=== PATIENT | male | born 1945 | race Two or more races ===

== ENCOUNTER → 2024-03-21 | Outpatient (CLI) | payer MEDICARE, MEDICAID, SELFPAY ==
--- NOTE | 2024-03-21 10:15 | XR_ITS ---
EXAMINATION: PET/CT FUSION SKULL TO THIGH EXAM DATE AND TIME: March 21, 2024 1113 hours INDICATIONS: Diagnosis prostate cancer, staging prior to treatment CTDI:vol (mGy) 5.78 DLP: (mGycm) 505.47 PROCEDURE: 15.47 mCi FDG was administered intravenously To allow for distribution and uptake of radiotracer, the patient was allowed to rest quietly in a shielded room. Imaging was performed on an integrated 16-slice PET/CT scanner, with scanning from the skull base to the mid thigh. Serum blood glucose at the time of the injection was measured 124 mg/dL. CT scanning was performed without oral or intravenous contrast material. FINDINGS: Head and Neck: There is no dagoberto hypermetabolism in the neck. The visualized portions of the brain are normal in appearance on CT. Chest: There is no dagoberto hypermetabolism in the chest. There are no pulmonary nodules. Abdomen and Pelvis: There is no dagoberto hypermetabolism in retroperitoneal or pelvic chains. The spleen is normal in size and FDG avidity. Musculoskeletal: Multiple subcentimeter osteoblastic foci involving almost all thoracic and lumbar vertebral bodies, the largest 8 mm in T12 and the largest 8 mm in L1 as well as 9 mm in the L3 Multiple subcentimeter osteoblastic foci in the iliac bones 24 mm sclerotic focus in the right hip IMPRESSION: Widespread non hypermetabolic osteoblastic metastases
[2024-03-21 12:28] LABS: Basophils % (Auto) 0 % (0-2.5); Eosinophils # (Auto) 0.1 Thou/mm3 (0.0-0.5); Eosinophils % (Auto) 1 % (0-10); Hematocrit 45.1 % (41.0-53.0); Hemoglobin 14.2 g/dL (13.5-16.0); Immature Granulocytes % (Auto) 0 % (0-0); Immature Granulocytes Auto 0.03 Thou/mm3 (0.00-0.00); Lymphocytes # (Auto) 2.5 Thou/mm3 (1.0-4.8); Lymphocytes % (Auto) 26 % (10-50); Mean Corpuscular HGB Conc 31.5 g/dl (31.0-37.0); Mean Corpuscular Hemoglobin 21.4 pg (25.0-35.0); Mean Corpuscular Volume 68 fL (80-100); Monocytes # (Auto) 0.7 Thou/mm3 (0.0-0.8); Monocytes % (Auto) 7 % (0-12); Neutrophils # (Auto) 6.2 Thou/mm3 (1.8-7.7); Neutrophils % (Auto) 65 % (37-80); Nucleated Red Blood Cell % 0 /100 WBC (0); Platelet Count 306 Thou/mm3 (140-440); Red Blood Count 6.65 Miln/mm3 (4.50-5.90); White Blood Count 9.5 Thou/mm3 (3.8-10.6)
[2024-03-21 12:46] LABS: Prostate Specific Antigen 4.27 ng/mL (0-4.00)
[2024-03-21 12:48] LABS: Alanine Aminotransferase 16 U/L (10-49); Albumin, Serum 4.5 gm/dL (3.4-4.8); Albumin/Globulin Ratio 1.7 (1.2-2.2); Alkaline Phosphatase 91 U/L (46-116); Anion Gap 5 (7-16); Aspartate Amino Transferase 24 U/L (0-34); BUN/Creatinine Ratio 23 Ratio (12-20); Blood Urea Nitrogen 18 mg/dL (9-23); Calcium 9.9 mg/dL (8.3-10.6); Calcium (Corrected) 9.9 mg/dL (8.5-10.1); Carbon Dioxide 33.9 mMol/L (20.0-31.0); Chloride 98 mMol/L (98-107); Creatinine (Component) 0.8 mg/dL (0.6-1.3); Globulin 2.6 gm/dL (2.3-3.5); Glucose 104 mg/dL (74-106); Osmolality,Calculated 275 (275-295); Potassium 3.9 mMol/L (3.4-5.1); Sodium 137 mMol/L (136-145); Total Protein 7.1 gm/dL (5.7-8.2); eGFR > 60 See Note
== END | disposition home or self-care (01) ==
LOC: CDIM 09:26 → COPL 11:56 → CDIM 04-19 05:54
PROVIDERS: Referring Provider Nurse Practitioner Family; Visit Provider Nurse Practitioner Family
DX: C79.9 Secondary malignant neoplasm of unspecified site (principal); C61 Malignant neoplasm of prostate; C79.51 Secondary malignant neoplasm of bone
CPT/HCPCS: 36415; 78815; 80053; 84153; 85025; A9552

== ENCOUNTER 2024-03-25 12:00 | Outpatient (RCR) | payer MEDICARE, MEDICAID, SELFPAY | END 2024-04-06 23:59 | disposition home or self-care (01) | LOC: SCTC 12:00 | PROVIDERS: PCP Nurse Practitioner Family; Referring Provider Nurse Practitioner Family; Visit Provider Internal Medicine Hematology & Oncology | DX: Z51.11 Encounter for antineoplastic chemotherapy (principal); C61 Malignant neoplasm of prostate; C79.51 Secondary malignant neoplasm of bone | CPT/HCPCS: 96372; 96402; 99213; J0897; J9217; G0463 ==

== ENCOUNTER → 2024-05-16 | Outpatient (CLI) | payer MEDICARE, MEDICAID, SELFPAY ==
[2024-05-16 08:39] LABS: Basophils % (Auto) 1 % (0-2.5); Eosinophils # (Auto) 0.2 Thou/mm3 (0.0-0.5); Eosinophils % (Auto) 2 % (0-10); Hemoglobin 13.5 g/dL (13.5-16.0); Immature Granulocytes % (Auto) 0 % (0-0); Immature Granulocytes Auto 0.02 Thou/mm3 (0.00-0.00); Lymphocytes # (Auto) 2.1 Thou/mm3 (1.0-4.8); Lymphocytes % (Auto) 27 % (10-50); Mean Corpuscular HGB Conc 32.1 g/dl (31.0-37.0); Mean Corpuscular Hemoglobin 21.6 pg (25.0-35.0); Mean Corpuscular Volume 67 fL (80-100); Monocytes # (Auto) 0.6 Thou/mm3 (0.0-0.8); Monocytes % (Auto) 7 % (0-12); Neutrophils # (Auto) 4.8 Thou/mm3 (1.8-7.7); Neutrophils % (Auto) 63 % (37-80); Nucleated Red Blood Cell % 0 /100 WBC (0); Platelet Count 341 Thou/mm3 (140-440); RDW Standard Deviation 37.1 fL (35.1-43.9); Red Blood Count 6.25 Miln/mm3 (4.50-5.90); White Blood Count 7.6 Thou/mm3 (3.8-10.6)
[2024-05-16 08:50] LABS: Prostate Specific Antigen 7.23 ng/mL (0-4.00)
[2024-05-16 08:55] LABS: Alanine Aminotransferase 13 U/L (10-49); Albumin, Serum 4.4 gm/dL (3.4-4.8); Albumin/Globulin Ratio 1.6 (1.2-2.2); Alkaline Phosphatase 89 U/L (46-116); Anion Gap 7 (7-16); Aspartate Amino Transferase 16 U/L (0-34); BUN/Creatinine Ratio 27 Ratio (12-20); Bilirubin,Total 0.7 mg/dL (0.3-1.2); Blood Urea Nitrogen 16 mg/dL (9-23); Calcium 9.7 mg/dL (8.3-10.6); Calcium (Corrected) 9.7 mg/dL (8.5-10.1); Carbon Dioxide 32.1 mMol/L (20.0-31.0); Chloride 103 mMol/L (98-107); Creatinine (Component) 0.6 mg/dL (0.6-1.3); Globulin 2.7 gm/dL (2.3-3.5); Glucose 118 mg/dL (74-106); Osmolality,Calculated 285 (275-295); Potassium 4.4 mMol/L (3.4-5.1); Sodium 142 mMol/L (136-145); Total Protein 7.1 gm/dL (5.7-8.2); eGFR > 60 See Note
== END | disposition home or self-care (01) ==
LOC: COPL 07:54 → SCTO 07:56
PROVIDERS: PCP Nurse Practitioner Family; Referring Provider Internal Medicine Hematology & Oncology; Visit Provider Internal Medicine Hematology & Oncology
DX: C61 Malignant neoplasm of prostate (principal); C79.51 Secondary malignant neoplasm of bone
CPT/HCPCS: 36415; 80053; 84153; 85025

== ENCOUNTER 2024-05-20 14:30 | Outpatient (RCR) | payer MEDICARE, MEDICAID, SELFPAY ==
--- NOTE | 2024-05-20 16:02 | CTCFLWUP_ITS ---
Patient: LIZZY GARCIA : 1945 Page 2 of 2 FOLLOW UP NOTE DATE OF SERVICE: 05/20/2024 NAME: LIZZY GARCIA ACCOUNT: [id number] : 1945 AGE: 78 INTERVAL HISTORY: Patient was progression on zytiga and was switched to xtandi about 2 months ago. Patient doing well with new medication . his teecth are huirting and need extraction . 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 Patient is a father of 18 children out of which 11 are alive. 06/15/2020: Prostate biopsy was performed due to elevated PSA of 59.12. Pathology showed [place] score 9 prostatic adenocarcinoma in all biopsy samples. 07/16/2020: Bone scan? 07/28/2020: CT scan of the chest without contrast? 07/28/2020: X-rays of the thoracic spine, lumbar spine as well as pelvis? 09/01/2020: Patient is started on Casodex 50 mg p.o. daily. 09/15/2020: Patient received his first dose of Lupron 7.5 mg IM. 09/28/2020: Casodex 50 mg p.o. daily prescription was given to Mr. Garcia. However Mr. Fabricio beard did not fill the prescription. 10/15/2020: Patient received Lupron 7.5 mg IM. 12/22/2020: Patient is started on abiraterone. 01/18/2021: Abiraterone decreased to 250 mg, 1 tablet daily after low-fat breakfast PSA trend: 08/10/2020: PSA 44.34. 10/13/2020: PSA 4.01. 12/21/2020: PSA is 19.44. 01/28/2021: PSA 0.75. 05/10/2021: PSA 0.13 09/06/2021: PSA less than 0.10 10/22/2021: Bone scan showed improved appearance. 01/06/2022: PSA less than 0.10 03/14/2022: PSA less than 0.10. 07/08/2022: PSA less than 0.10. 12/06/2022: PSA 0.12 02/13/2023: PSA 0.16. 06/01/2023: PSA 0.45 10/09/2023: PSA 0.77 11/07/2023: CT chest abdomen pelvis with contrast 11/27/2023: Bone scan 12/05/2023: X-ray left hip-no findings diagnostic for osteoblastic metastatic disease involving the hi p, consider MRI left hip pre and postcontrast 01/02/2024: MRI abdomen with and without contrast-25 mm right lobe liver cyst, no abdominal lymphadeno lionel 01/02/2024: MRI left hip with and without contrast-osseous metastatic disease involving the intertroch anteric and subtrochanteric region left hip as well as anterior right acetabulum 12/04/2023: PSA was 1.21 OTHER MEDICAL HISTORY/CONDITIONS: FAMILY HISTORY: SOCIAL HISTORY: MEDICATIONS: 1. allopurinol - 100 mg 2 tab Daily 2. Bone Density Calcium Plus D - 300-200-37.5 mg-unit-mg 1 tab Daily 3. chlorthalidone - 25 mg 1 tab In the evening 4. Citracal + D Slow Release - 600 mg-12.5 mcg (500 unit) 1 tab one tab po twice a day 5. Flomax - 0.4 mg Daily 6. lisinopril - 20 mg tab 7. metFORMIN - 1,000 mg 1 tab Twice a Day 8. Mitigare - 0.6 mg 2 Capsule As directed 9. Vitamin C - 500 mg 1 tab Daily 10. Xtandi - 40 mg 4 tab Daily Medications Last Reconciled by Aissatou Gayle MA on 05/20/2024 ALLERGIES: PENICILLAMINE REVIEW OF SYSTEMS: A complete 14-point review of systems was performed and is negative except as noted in interval histo ry. PHYSICAL EXAMINATION: VITAL SIGNS: Temperature?99, B/P?135/85, Oxygen?Saturation?98% Weight?153?lbs PAIN: 6 - Severe pain ECOG Performance Status: 1 - Symptomatic; ambulatory; restricted in strenuous activity GENERAL APPEARANCE: Appears well, in no apparent distress, appropriately interactive. HEENT: Normocephalic, no temporal wasting, normal conjunctiva, no scleral icterus, normal hearing, li ps without lesions, neck normal range of motion. CARDIOVASCULAR: Not assessed. PULMONARY: Normal respiratory effort, no respiratory distress or use of accessory muscles, speaking i n full sentences, no tachypnea. EXTREMITIES: No pedal edema or cyanosis. SKIN: Normal skin appearance. NEUROLOGIC: Alert and oriented x4. PSHYCHIATRIC: Appropriate affect, mood normal, behavior normal, intact thought and speech. LABORATORY DATA: I have personally reviewed and interpreted each of the patient?s relevant lab tests, abnormal finding s are below: Date 05/16/24 ??GLUCOSE,RANDOM?(mg/dL) 118?H ??BLOOD?UREA?NITROGEN?(mg/dL) 16 ??CREATININE?(mg/dL) 0.60 ??SODIUM?(mmol/L) 142 ??POTASSIUM?(mmol/L) 4.4 ??CHLORIDE?(mmol/L) 103 ??CrCl?(CandG)?(ml/min) 103.19 ??AST/SGOT?(Unit/L) 16 ??ALT/SGPT?(Unit/L) 13 ??ALKALINE?PHOSPHATASE?(Unit/L) 89 ??BILIRUBIN,?TOTAL?(mg/dL) 0.7 ??PROTEIN?TOTAL?(gm/dl) 7.1 ??ALBUMIN,?SERUM?(gm/dl) 4.4 ??GLOBULIN?(gm/dl) 2.7 ??ALBUMIN/GLOBULIN?RATIO 1.6 ??CALCIUM,?SERUM?(mg/dL) 9.7 ??CALCIUM?SERUM?(CORRECTED)?(mg/dL) 9.7 ASSESSMENT/PLAN: Metastatic prostate cancer Progressed on zytiga Was changed to xtandi , taking for last 45-50 days Psa is more than 7 Will wait for another motnh to see sheri . will start on chemotherapy with docetexol if no downward trend . ORDERS: Cbc pet scan , cmp psa RETURN TO CLINIC: 6 weeks BILLING AND COMPLIANCE: I reviewed external records from providers outside my specialty as summarized above. I spent a total of 50 minutes on this patient?s care on the day of their visit excluding time spent related to any bi lled procedures. This time includes time spent with the patient as well as time spent documenting in the medical record, reviewing patients records and tests, obtaining history, placing orders, communi cating with other healthcare professionals, counseling the patient, family or caregiver, and/or care coordination for the diagnoses above. Electronically Signed by: Michael Michael MD T: 4:00 PM CC: Rosaura,? PCP: Nando([facility])[place] Referring: Nando([facility])[place] This document was completed utilizing speech recognition software. Grammatical errors, random word in sertions, pronoun errors, and incomplete sentences are an occasional consequence of this system due t o software limitations, ambient noise, and hardware issues. Any formal questions or concerns about th e content, text or information contained within the body of this dictation should be directly address ed to the provider for clarification.
== END 2024-06-07 23:59 | disposition home or self-care (01) ==
LOC: SCTC 14:30
PROVIDERS: PCP Nurse Practitioner Family; Referring Provider Nurse Practitioner Family; Visit Provider Internal Medicine Hematology & Oncology
DX: C61 Malignant neoplasm of prostate (principal); C79.51 Secondary malignant neoplasm of bone
CPT/HCPCS: 99213; G0463

== ENCOUNTER → 2024-06-14 | Outpatient (BNVA) | payer MEDICARE, MEDICAID, SELFPAY | END | disposition home or self-care (01) | PROVIDERS: PCP Nurse Practitioner Family; Referring Provider Nurse Practitioner Family; Visit Provider Urology | DX: N40.1 Benign prostatic hyperplasia with lower urinary tract symptoms (principal); N13.8 Other obstructive and reflux uropathy; C61 Malignant neoplasm of prostate; C79.51 Secondary malignant neoplasm of bone; E11.9 Type 2 diabetes mellitus without complications; I10 Essential (primary) hypertension | CPT/HCPCS: 81003; 99212; G0463 ==

== ENCOUNTER → 2024-06-25 | Outpatient (CLI) | payer MEDICARE, MEDICAID, SELFPAY ==
--- NOTE | 2024-06-25 10:05 | XR_ITS ---
Examination: PA lateral chest 2 views TECHNIQUE: Upright PA lateral chest 2 views Exam date and time: June 25, 2024 1058 hours INDICATIONS: Coughing wheezing beginning one month ago, diagnosis prostate cancer FINDINGS: Mild hyperexpansion Mild prominence left ventricle No lobar pneumonia or pulmonary edema Significant thoracic spondylosis, the thoracic vertebral bodies in their mid portions do exhibit sclerosis IMPRESSION: Mild hyperexpansion No pneumonia or pulmonary edema Suspicious for osteoblastic disease involving thoracic vertebral bodies
[2024-06-25 12:03] LABS: Basophils % (Auto) 1 % (0-2.5); Eosinophils % (Auto) 0 % (0-10); Hematocrit 42.6 % (41.0-53.0); Hemoglobin 13.5 g/dL (13.5-16.0); Immature Granulocytes % (Auto) 0 % (0-0); Immature Granulocytes Auto 0.03 Thou/mm3 (0.00-0.00); Lymphocytes # (Auto) 1.9 Thou/mm3 (1.0-4.8); Lymphocytes % (Auto) 22 % (10-50); Mean Corpuscular HGB Conc 31.7 g/dl (31.0-37.0); Mean Corpuscular Hemoglobin 21.3 pg (25.0-35.0); Mean Corpuscular Volume 67 fL (80-100); Monocytes # (Auto) 0.6 Thou/mm3 (0.0-0.8); Monocytes % (Auto) 7 % (0-12); Neutrophils # (Auto) 6.1 Thou/mm3 (1.8-7.7); Neutrophils % (Auto) 70 % (37-80); Nucleated Red Blood Cell % 0 /100 WBC (0); Platelet Count 478 Thou/mm3 (140-440); Red Blood Count 6.34 Miln/mm3 (4.50-5.90); White Blood Count 8.7 Thou/mm3 (3.8-10.6)
[2024-06-25 12:25] LABS: Alanine Aminotransferase 10 U/L (10-49); Albumin, Serum 4.3 gm/dL (3.4-4.8); Albumin/Globulin Ratio 1.4 (1.2-2.2); Alkaline Phosphatase 123 U/L (46-116); Anion Gap 10 (7-16); Aspartate Amino Transferase 17 U/L (0-34); BUN/Creatinine Ratio 20 Ratio (12-20); Bilirubin,Total 0.5 mg/dL (0.3-1.2); Blood Urea Nitrogen 16 mg/dL (9-23); Calcium 9.9 mg/dL (8.3-10.6); Calcium (Corrected) 9.9 mg/dL (8.5-10.1); Carbon Dioxide 30.9 mMol/L (20.0-31.0); Chloride 98 mMol/L (98-107); Creatinine (Component) 0.8 mg/dL (0.6-1.3); Glucose 121 mg/dL (74-106); Osmolality,Calculated 279 (275-295); Potassium 5.3 mMol/L (3.4-5.1); Sodium 139 mMol/L (136-145); Total Protein 7.3 gm/dL (5.7-8.2); eGFR > 60 See Note
== END | disposition home or self-care (01) ==
LOC: CDIM 10:09 → SCTO 11:11
PROVIDERS: PCP Nurse Practitioner Family; Referring Provider Nurse Practitioner Family; Visit Provider Radiology Diagnostic Radiology
DX: J98.4 Other disorders of lung (principal); C61 Malignant neoplasm of prostate; C79.51 Secondary malignant neoplasm of bone
CPT/HCPCS: 36415; 71046; 80053; 85025

== ENCOUNTER 2024-06-27 13:40 | Outpatient (RCR) | payer MEDICARE, MEDICAID, SELFPAY | END 2024-07-05 23:59 | disposition home or self-care (01) | LOC: SCTC 13:40 | PROVIDERS: PCP Nurse Practitioner Family; Referring Provider Nurse Practitioner Family; Visit Provider Radiology Therapeutic Radiology | DX: Z51.11 Encounter for antineoplastic chemotherapy (principal); C61 Malignant neoplasm of prostate; C79.51 Secondary malignant neoplasm of bone; Z79.818 Long term (current) use of other agents affecting estrogen receptors and estrogen levels | CPT/HCPCS: 96402; J9217 ==

== ENCOUNTER → 2024-07-11 | Outpatient (CLI) | payer MEDICARE, MEDICAID, SELFPAY ==
--- NOTE | 2024-07-11 14:40 | XR_ITS ---
EXAMINATION: PET/CT FUSION SKULL TO THIGH EXAM DATE AND TIME: July 11, 2024 1539 hours Comparison PET/CT scan March 21, 2024, MR abdomen January 02, 2024, MRI left hip January 02, 2024, nuclear medicine bone scan November 27, 2023, CT chest abdomen pelvis November 07, 2023 CTDI:vol (mGy) 9.92 DLP: (mGycm) 822 PROCEDURE: 16.5 mCi FDG was administered intravenously To allow for distribution and uptake of radiotracer, the patient was allowed to rest quietly in a shielded room. Imaging was performed on an integrated 16-slice PET/CT scanner, with scanning from the skull base to the mid thigh. Serum blood glucose at the time of the injection was measured 114 mg/dL. CT scanning was performed without oral or intravenous contrast material. FINDINGS: Head and Neck: There is no dagoberto hypermetabolism in the neck. The visualized portions of the brain are normal in appearance on CT. Chest: There is no dagoberto hypermetabolism in the chest. There are no pulmonary nodules. Abdomen and Pelvis: There is no dagoberto hypermetabolism in retroperitoneal or pelvic chains. The spleen is normal in size and FDG avidity. Musculoskeletal: Stable widespread osteoblastic metastatic disease IMPRESSION: Stable widespread osteoblastic metastatic disease compared to PET CT scan March 21, 2024 No interval metastatic disease in the chest abdomen or pelvis
== END | disposition home or self-care (01) ==
PROVIDERS: Referring Provider Internal Medicine Hematology & Oncology; Visit Provider Internal Medicine Hematology & Oncology
DX: C79.9 Secondary malignant neoplasm of unspecified site (principal); C61 Malignant neoplasm of prostate; C79.51 Secondary malignant neoplasm of bone
CPT/HCPCS: 78816; A9552

== ENCOUNTER 2024-07-23 12:59 | Outpatient (RCR) | payer MEDICARE, MEDICAID, SELFPAY ==
--- NOTE | 2024-07-23 14:17 | CTCFLWUP_ITS ---
Patient: LIZZY GARCIA : 1945 Page 2 of 7 FOLLOW UP NOTE DATE OF SERVICE: 07/23/2024 NAME: LIZZY GARCIA ACCOUNT: [id number] : 1945 AGE: 78 INTERVAL HISTORY: Patient was switched to Xtandi about 2 months ago. Patient says he has many family issues and he is taking his medication but he take it sporadically. He is planning a trip to [place] and want to come back to the clinic after his trip. ONCOLOGY HISTORY:?[facility] Hx? 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 Patient is a father of 18 children out of which 11 are alive. 06/15/2020: Prostate biopsy was performed due to elevated PSA of 59.12. Pathology showed [place] score 9 prostatic adenocarcinoma in all biopsy samples. 07/16/2020: Bone scan? 07/28/2020: CT scan of the chest without contrast? 07/28/2020: X-rays of the thoracic spine, lumbar spine as well as pelvis? 09/01/2020: Patient is started on Casodex 50 mg p.o. daily. 09/15/2020: Patient received his first dose of Lupron 7.5 mg IM. 09/28/2020: Casodex 50 mg p.o. daily prescription was given to Mr. Garcia. However Mr. Garcia did not fill the prescription. 10/15/2020: Patient received Lupron 7.5 mg IM. 12/22/2020: Patient is started on abiraterone. 01/18/2021: Abiraterone decreased to 250 mg, 1 tablet daily after low-fat breakfast PSA trend: 08/10/2020: PSA 44.34. 10/13/2020: PSA 4.01. 12/21/2020: PSA is 19.44. 01/28/2021: PSA 0.75. 05/10/2021: PSA 0.13 09/06/2021: PSA less than 0.10 10/22/2021: Bone scan showed improved appearance. 01/06/2022: PSA less than 0.10 03/14/2022: PSA less than 0.10. 07/08/2022: PSA less than 0.10. 12/06/2022: PSA 0.12 02/13/2023: PSA 0.16. 06/01/2023: PSA 0.45 10/09/2023: PSA 0.77 11/07/2023: CT chest abdomen pelvis with contrast 11/27/2023: Bone scan 12/05/2023: X-ray left hip-no findings diagnostic for osteoblastic metastatic disease involving the hip, consider MRI left hip pre and postcontrast 01/02/2024: MRI abdomen with and without contrast-25 mm right lobe liver cyst, no abdominal lymphadenopathy 01/02/2024: MRI left hip with and without contrast-osseous metastatic disease involving the intertrochanteric and subtrochanteric region left hip as well as anterior right acetabulum 12/04/2023: PSA was 1.21 PSA on 05/16/2024 is 7.23 PSA on 03/21/2024 4.27 OTHER MEDICAL HISTORY/CONDITIONS: FAMILY HISTORY: ?Clone Family Hx? SOCIAL HISTORY: MEDICATIONS: 1. allopurinol - 100 mg 2 tab Daily 2. chlorthalidone - 25 mg 1 tab In the evening 3. Citracal + D Slow Release - 600 mg-12.5 mcg (500 unit) 1 tab one tab po twice a day 4. Flomax - 0.4 mg Daily 5. lisinopril - 20 mg tab 6. metFORMIN - 1,000 mg 1 tab Twice a Day 7. Mitigare - 0.6 mg 2 Capsule As directed 8. Vitamin C - 500 mg 1 tab Daily 9. Xtandi - 40 mg 4 tab Daily?Pal[place]ra Meds? Medications Last Reconciled by Aissatou Gayle MA on 07/23/2024 ALLERGIES: PENICILLAMINE REVIEW OF SYSTEMS: A complete 14-point review of systems was performed and is negative except as noted in interval history. PHYSICAL EXAMINATION:?[facility] PE? VITAL SIGNS: Temperature?99.4, B/P?127/81, Oxygen?Saturation?97% Weight?143?lbs (Change?since?06/27/24:?-6.8?lbs) PAIN: 4 - Moderate pain ECOG Performance Status: 0 - Asymptomatic and fully active GENERAL APPEARANCE: Appears well, in no apparent distress, appropriately interactive. HEENT: Normocephalic, no temporal wasting, normal conjunctiva, no scleral icterus, normal hearing, lips without lesions, neck normal range of motion. CARDIOVASCULAR: Not assessed. PULMONARY: Normal respiratory effort, no respiratory distress or use of accessory muscles, speaking in full sentences, no tachypnea. EXTREMITIES: No pedal edema or cyanosis. SKIN: Normal skin appearance. NEUROLOGIC: Alert and oriented x4. PSHYCHIATRIC: Appropriate affect, mood normal, behavior normal, intact thought and speech. LABORATORY DATA: I have personally reviewed and interpreted each of the patient?s relevant lab tests, abnormal findings are below: Date 05/16/24 06/25/24 ??WHITE?BLOOD?COUNT?(Thou/mm3) 7.6 8.7 ??RED?BLOOD?COUNT?(Miln/mm3) 6.25?H 6.34?H ??HEMOGLOBIN?(gm/dl) 13.5 13.5 ??HEMATOCRIT?(%) 42.0 42.6 ??PLATELET?COUNT?(Thou/mm3) 341 478?H ??NEUTROPHILS?%,?AUTO?(%) 63 70 ??LYMPH?%,?AUTO?(%) 27 22 ??NEUTROPHILS,?AUTO?(Thou/mm3) 4.8 6.1 ??GLUCOSE,RANDOM?(mg/dL) 118?H 121?H ??BLOOD?UREA?NITROGEN?(mg/dL) 16 16 ??CREATININE?(mg/dL) 0.60 0.80 ??SODIUM?(mmol/L) 142 139 ??POTASSIUM?(mmol/L) 4.4 5.3?H ??CHLORIDE?(mmol/L) 103 98 ??CrCl?(CandG)?(ml/min) 103.19 75.91 ??AST/SGOT?(Unit/L) 16 17 ??ALT/SGPT?(Unit/L) 13 10 ??ALKALINE?PHOSPHATASE?(Unit/L) 89 123?H ??BILIRUBIN,?TOTAL?(mg/dL) 0.7 0.5 ??PROTEIN?TOTAL?(gm/dl) 7.1 7.3 ??ALBUMIN,?SERUM?(gm/dl) 4.4 4.3 ??GLOBULIN?(gm/dl) 2.7 3.0 ??ALBUMIN/GLOBULIN?RATIO 1.6 1.4 ??CALCIUM,?SERUM?(mg/dL) 9.7 9.9 ??CALCIUM?SERUM?(CORRECTED)?(mg/dL) 9.7 9.9 ASSESSMENT/PLAN:?Oanh Michael Assessment/Plan? Metastatic prostate cancer Progressed on zytiga Was changed to xtandi , very noncompliant Last Psa is more than 7 Compliance reiterated PET scan do not show any progression Advised to take medicine Will change Lupron to every 3 months Patient can come back after his trip from [place] ORDERS: Order # Description [id number] Follow Up 2 Months + PSA [id number] Comprehensive Metabolic Panel - 12 + CBC with Auto Diff RETURN TO CLINIC: I will see him back in the clinic in 2 months. I will see him back in the clinic in 2 months. BILLING AND COMPLIANCE: I reviewed external records from providers outside my specialty as summarized above. I spent a total of 50 minutes on this patient?s care on the day of their visit excluding time spent related to any billed procedures. This time includes time spent with the patient as well as time spent documenting in the medical record, reviewing patients records and tests, obtaining history, placing orders, communicating with other healthcare professionals, counseling the patient, family or caregiver, and/or care coordination for the diagnoses above. Electronically Signed by: Michael Michael MD T: 2:15 PM CC: Kathrine?Thomas,? PCP: Michael Michael Referring: Michael Michael This document was completed utilizing speech recognition software. Grammatical errors, random word insertions, pronoun errors, and incomplete sentences are an occasional consequence of this system due to software limitations, ambient noise, and hardware issues. Any formal questions or concerns about the content, text or information contained within the body of this dictation should be directly addressed to the provider for clarification.
== END 2024-08-05 23:59 | disposition home or self-care (01) ==
LOC: SCTC 12:59
PROVIDERS: PCP Nurse Practitioner Family; Referring Provider Internal Medicine Hematology & Oncology; Visit Provider Internal Medicine Hematology & Oncology
DX: C61 Malignant neoplasm of prostate (principal); C79.51 Secondary malignant neoplasm of bone; Z91.148 Patient's other noncompliance with medication regimen for other reason; Z79.818 Long term (current) use of other agents affecting estrogen receptors and estrogen levels
CPT/HCPCS: 99213; G0463

== ENCOUNTER 2024-09-22 15:47 | Emergency (ER) | payer MEDICARE, MEDICAID, SELFPAY ==
--- NOTE | 2024-09-22 17:01 | PD.EDNECK ---
ED Neck Injury Pain RME/HPI General Arrival date/time: 09/22/24 15:47 RME / HPI RME / HPI Narrative: 78 year old male with history of prostate cancer with bone mets, undergoing chemotherapy presents to the ED for evaluation of left sided neck pain beginning 3 days ago. Described as aching in sensation, rating as moderate-severe, that is located most to the left side of neck with radiation down to his left shoulder/upper back. Pain aggravated with movements of his neck. States he has taken Diclofenac, last dose at 13:45, without improvement. Denies any injuries. Patient mentioned he had a bone scan performed 1 month ago and is pending results. Patient denies having experienced neck pain since cancer diagnosis. Related Data Home Medications ?Medication ?Instructions ?Recorded ?Confirmed allopurinol 100 mg tablet 100 mg PO QDAY 06/09/20 06/14/24 tamsulosin 0.4 mg capsule 0.4 mg PO QHS 06/09/20 06/14/24 ascorbic acid (vitamin C) 500 mg 500 mg PO QDAY 06/16/23 06/14/24 capsule lisinopril 20 mg tablet 20 mg PO QDAY 12/15/23 06/14/24 metformin 1,000 mg tablet 1,000 mg PO BID 12/15/23 06/14/24 chlorothiazide 250 mg tablet mg PO 06/14/24 06/14/24 enzalutamide 40 mg tablet (Xtandi) 160 mg PO QDAY 06/14/24 06/14/24 Previous Rx's ?Medication ?Instructions ?Recorded diazepam 10 mg tablet 10 mg PO BID muscle spasm 3 days 09/22/24 #6 tabs hydrocodone 5 mg-acetaminophen 325 1 tab PO Q8H PRN pain #14 tabs 09/22/24 mg tablet Allergies Allergy/AdvReac Type Severity Reaction Status Date / Time Penicillins Allergy hives Verified 06/14/24 09:32 Review of Systems Review of Systems Narrative Review of Systems: Gen: No fever, no chills, no weight loss EYES: No discharge, no visual changes, no pain HEENT: No ear pain, no congestion, no sore throat PULM: no shortness of breath, no cough, no congestion CV: No chest pain, no dyspnea on exertion, no palpitations, no chest tightness GI: No nausea, no vomiting, no diarrhea, no pain, no constipation : No frequency, no urgency,? no dysuria Musc/skel: +neck pain, +back pain Skin: No rash, no ecchymosis, no lesions Neuro: No weakness, no headache Past Medical History Past Medical History CARDIAC: Negative Congestive Heart Failure RESPIRATORY: Negative Chronic Obstructive Pulmonary Disease (COPD) GENITOURINARY: Positive Prostate Cancer (with bone mets); Negative Renal Disease MUSCULOSKELETAL: Positive Bone Cancer ENDOCRINE: Negative Diabetes Mellitus Type 1 or Diabetes Mellitus Type 2 OTHER HISTORY: Positive Cancer and Prostate Cancer (with bone mets) Social History SMOKING STATUS: Never smoker ED Exam Narrative Physical exam: GENERAL APPEARANCE: AxOx4, no obvious distress, nontoxic appearing HEENT: NC, AT. MMM. EOMI, clear conjunctiva, oropharynx clear. NECK: LROM particularly while looking to the left and upward, reproducible pain to the left cervical region that moves down left trapezius, no lymphadenopathy. HEART: Normal rate and regular rhythm, normal S1/S1, no m/r/g LUNGS: CTAB, moving air well. No crackles or wheezes are heard. ABDOMEN: Soft, nontender, nondistended with good bowel sounds heard. BACK: No midline C/T/L spine pain or deformity, No CVAT, no obvious deformity. EXTREMITIES: Without cyanosis, clubbing or edema. MUSCULOSKELETAL: No chest tenderness NEUROLOGICAL: Grossly nonfocal. Alert and oriented, moving all 4 extremities. CN not formally tested but appear grossly intact. Skin: Warm and dry without any rash. Course Quality Measures none Orders Category Date Time Status Diazepam [Valium] Med 09/22/24 17:08 Discontinued 5 mg PO X1 ONE HYDROcodone*/APAP 5/325 [[place] 5/325] Med 09/22/24 17:08 Discontinued 1 tab PO X1 ONE Ketorolac Inj [Toradol Inj] Med 09/22/24 17:08 Discontinued 30 mg IM X1 ONE Vital Signs Vital signs: Vital Signs Temperature 98.2 F 09/22/24 18:16 Pulse Rate 62 09/22/24 18:16 Respiratory Rate 17 09/22/24 18:16 Blood Pressure 149/81 H 09/22/24 18:16 Pulse Oximetry (%) 97 09/22/24 18:16 Oxygen Delivery Method Room Air 09/22/24 18:16 Neck Pain MDM Narrative MDM Narrative:: Mr. Galindo is a very pleasant gentleman, michele, who is aware that he has widespread metastatic prostate cancer to all his bones . In reviewing his previous staging diagnostics, he appears to have metastases to the thoracic and the lumbar spine. Today he is complaining of cervical pain, lower at the level of C4-C6 and radiating to the left shoulder. On exam there is also associated left trapezius spasm and tenderness. He does not have symptoms consistent with radicular pain or deficits in this distribution or other cervical distributions as well. We discussed the possibility of also having metastatic disease to the cervical spine. He states that he understand this is part of the disease, however without significant neurologic deficit through shared decision making we agreed that today we will hold off on imaging such as cervical spine x-ray or cervical spine CT. He has agreed to symptomatic management with muscle relaxers and narcotic pain medicines as he is already maxed out on his diclofenac. He will follow-up with his oncologist to see if further imaging or staging will be required for his cervical spine. I have given him strict return precautions particular neurologic deficits to return to the emergency department for the meantime. I, Melida Peterson, am scribing for and in the presence of Dr. Woodruff. Patient data External records reviewed:: [facility] previous records (I reviewed PET scan performed 07/11/2024 and oncology follow up note on 07/23/2024) Clinical information provided by:: patient Social determinants that could affect healthcare access:: none Patient has the following chronic illnesses:: prostate cancer with bone mets, undergoing chemotherapy How is presenting disease/condition affected by chronic disease/condition?: exacerbated by Evaluation data The following diagnostics were reviewed and interpreted by me:: other (specify) (No diagnostics ordered ) Lab and/or radiology exams considered but not ordered:: None Interpretation Summary: As noted above Medications / Prescriptions Medications or Prescriptions considered but not ordered:: None Medication administrations:: Medication Administration History Discontinued Medications Hydrocodone Bitart/Acetaminophen (Hydrocodone/Apap 5/325 Tablet) 1 tab PO X1 ONE Stop: 09/22/24 17:09 Last Admin: 09/22/24 18:00 Dose: 1 tab Documented By: EF Diazepam (Diazepam 5 Mg Tablet) 5 mg PO X1 ONE Stop: 09/22/24 17:09 Last Admin: 09/22/24 18:00 Dose: 5 mg Documented By: EF Ketorolac Tromethamine (Ketorolac Inj 60 Mg/2 Ml Vial) 30 mg IM X1 ONE Stop: 09/22/24 17:09 Last Admin: 09/22/24 18:00 Dose: 30 mg Documented By: HALINA See above Consultations Consultation(s) initiated? (list below): No Diagnosis Neck Differential Diagnosis: disc disorder of cervical region, cervical radiculopathy, torticollis, strain of neck muscle and other (cancer, chronic pain, ) Most likely diagnosis given after review of the tests above:: Cervical strain History of metastatic neoplastic disease Admission Indicated Admission indicated?: not indicated Explain why admission is indicated or not indicated:: Does not meet admission criteria Admission Request Was there a request for admission?: No Disposition Plan Disposition Plan: Discharge Discharge Attestation Discharge Attestation: The patient and all family members were given an opportunity to ask questions and understood the discharge instructions. Discharge instructions specifically effects, indications for sooner follow up or return to the emergency department, and the expected course of current diagnosis. Patient condition: Stable Discharge Plan Plan Patient Disposition: HOME (Self Care) Prescriptions/Referrals Prescriptions/Med Rec: New diazepam 10 mg tablet 10 mg PO BID 3 Days Qty: 6 0RF hydrocodone-acetaminophen 5-325 mg tablet 1 tab PO Q8H MDD 3 tabs/day PRN (Reason: pain) Qty: 14 0RF No Action allopurinol 100 mg tablet 100 mg PO QDAY tamsulosin 0.4 mg capsule 0.4 mg PO QHS ascorbic acid (vitamin C) 500 mg capsule 500 mg PO QDAY lisinopril 20 mg tablet 20 mg PO QDAY metformin 1,000 mg tablet 1,000 mg PO BID chlorothiazide 250 mg tablet PO Xtandi 40 mg tablet 160 mg PO QDAY Problem List Clinical Impression: Cervical strain, History of metastatic neoplastic disease Patient/Caregiver Discharge Instructions Education Materials: ED Neck Sprain or Strain Additional Instructions: Follow-up with your oncologist in 1 week for recheck. Print Language: Yoruba Stand Alone Forms: [facility] Award Info., Patient Portal Info Letter
[2024-09-22] MEDS: DIAZEPAM 5 MG TABLET PO (18:00)
[2024-09-22] MEDS: KETOROLAC INJ 60 MG/2 ML VIAL 30 MG IM (18:00)
[2024-09-22] MEDS: HYDROcodone/APAP 5/325 TABLET 1 TAB PO (18:00)
[2024-09-22 18:16] VITALS: BP 149/81; PULSE 62; RESP 17; TEMP 36.8; O2SAT 97
== END 2024-09-22 18:18 | disposition home or self-care (01) ==
LOC: SERX 18:51
PROVIDERS: Emergency Provider Emergency Medicine
DX: S16.1XXA Strain of muscle, fascia and tendon at neck level, initial encounter (principal); X58.XXXA Exposure to other specified factors, initial encounter; C61 Malignant neoplasm of prostate; C79.51 Secondary malignant neoplasm of bone
CPT/HCPCS: 96372; 99283; J1885; A9270

== ENCOUNTER → 2024-09-23 | Outpatient (CLI) | payer MEDICARE, MEDICAID, SELFPAY ==
[2024-09-23 10:46] LABS: Basophils % (Auto) 0 % (0-2.5); Eosinophils # (Auto) 0.1 Thou/mm3 (0.0-0.5); Eosinophils % (Auto) 1 % (0-10); Hematocrit 41.5 % (41.0-53.0); Hemoglobin 13.4 g/dL (13.5-16.0); Immature Granulocytes % (Auto) 0 % (0-0); Immature Granulocytes Auto 0.03 Thou/mm3 (0.00-0.00); Lymphocytes # (Auto) 1.8 Thou/mm3 (1.0-4.8); Lymphocytes % (Auto) 25 % (10-50); Mean Corpuscular HGB Conc 32.3 g/dl (31.0-37.0); Mean Corpuscular Hemoglobin 22.3 pg (25.0-35.0); Mean Corpuscular Volume 69 fL (80-100); Monocytes # (Auto) 0.6 Thou/mm3 (0.0-0.8); Monocytes % (Auto) 8 % (0-12); Neutrophils # (Auto) 4.7 Thou/mm3 (1.8-7.7); Neutrophils % (Auto) 66 % (37-80); Nucleated Red Blood Cell % 0 /100 WBC (0); Platelet Count 270 Thou/mm3 (140-440); White Blood Count 7.1 Thou/mm3 (3.8-10.6)
[2024-09-23 11:14] LABS: Alanine Aminotransferase < 7 U/L (10-49); Albumin, Serum 3.9 gm/dL (3.4-4.8); Albumin/Globulin Ratio 1.6 (1.2-2.2); Alkaline Phosphatase 146 U/L (46-116); Anion Gap 9 (7-16); Aspartate Amino Transferase 14 U/L (0-34); BUN/Creatinine Ratio 33 Ratio (12-20); Bilirubin,Total 0.9 mg/dL (0.3-1.2); Blood Urea Nitrogen 23 mg/dL (9-23); Calcium 9.1 mg/dL (8.3-10.6); Calcium (Corrected) 9.2 mg/dL (8.5-10.1); Carbon Dioxide 28.5 mMol/L (20.0-31.0); Chloride 104 mMol/L (98-107); Creatinine (Component) 0.7 mg/dL (0.6-1.3); Globulin 2.4 gm/dL (2.3-3.5); Glucose 108 mg/dL (74-106); Osmolality,Calculated 285 (275-295); Potassium 4.4 mMol/L (3.4-5.1); Sodium 141 mMol/L (136-145); Total Protein 6.3 gm/dL (5.7-8.2); eGFR > 60 See Note
[2024-09-23 11:29] LABS: Prostate Specific Antigen 43.83 ng/mL (0-4.00)
== END | disposition home or self-care (01) ==
LOC: SCTO 09:12
PROVIDERS: PCP Nurse Practitioner Family; Referring Provider Psychiatry & Neurology Neurology; Visit Provider Psychiatry & Neurology Neurology
DX: C61 Malignant neoplasm of prostate (principal); C79.51 Secondary malignant neoplasm of bone
CPT/HCPCS: 36415; 80053; 84153; 85025

== ENCOUNTER 2024-09-26 12:57 | Outpatient (RCR) | payer MEDICARE, MEDICAID, SELFPAY ==
--- NOTE | 2024-10-02 00:20 | CTCFLWUP_ITS ---
Patient: LIZZY GARCIA : 1945 Page 6 of 8 FOLLOW UP NOTE DATE OF SERVICE: 09/25/2024 NAME: LIZZY GARCIA ACCOUNT: [id number] : 1945 AGE: 78 INTERVAL HISTORY: Subjective: Chief Complaint Worsening prostate cancer, non-compliance with medication History of Present Illness Mr. Chavis is a male patient with metastatic prostate cancer presenting for follow-up. His prostate-specific antigen (PSA) cancer marker has significantly increased to 40, indicating worsening of his condition. The patient has been non-compliant with his prescribed medication, Xtandi. He has also missed his scheduled injection in August, which was due on September 03. The last injection he received was in June, making him approximately one month late for his treatment. This non-adherence to his medication regimen has resulted in an uptrend of his PSA levels. Despite the worsening PSA levels, Mr. Chavis's PET scan in July was reported as stable. However, due to his non-compliance with oral medication and missed injections, a change in treatment plan is being considered. The patient's liver enzymes are also noted to be increasing, further complicating his clinical picture. Medications and Supplements - Xtandi - Patient has been non-compliant - Leuprolide 22.5 mg injection - Given every 3 months - Last dose in June - Missed August dose Objective: Laboratory, Imaging, and Diagnostic Test Results - PSA: 40 (uptrending) - Previous results: - PSA: Unspecified lower value (date not mentioned) - PET scan (July 2024): Stable ONCOLOGY HISTORY:?[facility] Hx? 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 DATE OF DIAGNOSIS: 06/15/2020 STAGE/TNM: Stage 4 metastatic cancer TREATMENT HISTORY: Care?Plan Start?Date Cycle Day Intent Lupron?22.5?mg?q?3?mon 12/22/2020 1 90 Palliative Xgeva?120?mg?q?3?months 12/22/2020 1 90 Palliative Lupron?7.5?mg 02/02/2021 1 30 Palliative xgeva?monthly 02/02/2021 1 30 Palliative Xgeva?120?mg?q?3?months 05/19/2022 1 90 Palliative Lupron?22.5?mg?q?3?mon 08/24/2026 1 90 Maintenance DOCEtaxel?75?mg/m*2?and?prednisone?5?mg?bid 09/25/2024 1 21 Palliative HISTORY OF PRESENT ILLNESS: PREVIOUS NOTE: Lizzy Garcia is a 78-year-old SPA speaking male, recently diagnosed with metastatic prostate cancer with bone mets. Patient is a father of 18 children out of which 11 are alive. 06/15/2020: Prostate biopsy was performed due to elevated PSA of 59.12. Pathology showed Ton score 9 prostatic adenocarcinoma in all biopsy samples. 07/16/2020: Bone scan? 07/28/2020: CT scan of the chest without contrast? 07/28/2020: X-rays of the thoracic spine, lumbar spine as well as pelvis? 09/01/2020: Patient is started on Casodex 50 mg p.o. daily. 09/15/2020: Patient received his first dose of Lupron 7.5 mg IM. 09/28/2020: Casodex 50 mg p.o. daily prescription was given to Mr. Garcia. However Mr. Garcia did not fill the prescription. 10/15/2020: Patient received Lupron 7.5 mg IM. 12/22/2020: Patient is started on abiraterone. 01/18/2021: Abiraterone decreased to 250 mg, 1 tablet daily after low-fat breakfast PSA trend: 08/10/2020: PSA 44.34. 10/13/2020: PSA 4.01. 12/21/2020: PSA is 19.44. 01/28/2021: PSA 0.75. 05/10/2021: PSA 0.13 09/06/2021: PSA less than 0.10 10/22/2021: Bone scan showed improved appearance. 01/06/2022: PSA less than 0.10 03/14/2022: PSA less than 0.10. 07/08/2022: PSA less than 0.10. 12/06/2022: PSA 0.12 02/13/2023: PSA 0.16. 06/01/2023: PSA 0.45 10/09/2023: PSA 0.77 11/07/2023: CT chest abdomen pelvis with contrast 11/27/2023: Bone scan 12/05/2023: X-ray left hip-no findings diagnostic for osteoblastic metastatic disease involving the hip, consider MRI left hip pre and postcontrast 01/02/2024: MRI abdomen with and without contrast-25 mm right lobe liver cyst, no abdominal lymphadenopathy 01/02/2024: MRI left hip with and without contrast-osseous metastatic disease involving the intertrochanteric and subtrochanteric region left hip as well as anterior right acetabulum 12/04/2023: PSA was 1.21 PSA on 05/16/2024 is 7.23 PSA on 03/21/2024 4.27 OTHER MEDICAL HISTORY/CONDITIONS: FAMILY HISTORY: ?[facility] Hx? SOCIAL HISTORY: MEDICATIONS: 1. allopurinol - 100 mg 2 tab Daily 2. chlorthalidone - 25 mg 1 tab In the evening 3. Citracal + D Slow Release - 600 mg-12.5 mcg (500 unit) 1 tab one tab po twice a day 4. dexamethasone - 4 mg 2 tab 2 tabs po twice a day starting one day before chem 5. diazePAM - 10 mg 1 tab As directed 6. Flomax - 0.4 mg Daily 7. lisinopril - 20 mg tab 8. metFORMIN - 1,000 mg 1 tab Twice a Day 9. Mitigare - 0.6 mg 2 Capsule As directed 10. [place] - 5-325 mg 1 tab As directed 11. Vitamin C - 500 mg 1 tab Daily 12. Xtandi - 40 mg 4 tab Daily?[place] Meds? Medications Last Reconciled by Carolina Geronimo MA on 09/25/2024 ALLERGIES: PENICILLAMINE REVIEW OF SYSTEMS: A complete 14-point review of systems was performed and is negative except as noted in interval history. PHYSICAL EXAMINATION:?[facility] PE? VITAL SIGNS: Temperature?96.4, B/P?147/83, Oxygen?Saturation?97% Weight?139?lbs PAIN: 3 - Between mild and moderate pain ECOG Performance Status: 0 - Asymptomatic and fully active GENERAL APPEARANCE: Appears well, in no apparent distress, appropriately interactive. HEENT: Normocephalic, no temporal wasting, normal conjunctiva, no scleral icterus, normal hearing, lips without lesions, neck normal range of motion. CARDIOVASCULAR: Not assessed. PULMONARY: Normal respiratory effort, no respiratory distress or use of accessory muscles, speaking in full sentences, no tachypnea. EXTREMITIES: No pedal edema or cyanosis. SKIN: Normal skin appearance. NEUROLOGIC: Alert and oriented x4. PSHYCHIATRIC: Appropriate affect, mood normal, behavior normal, intact thought and speech. LABORATORY DATA: I have personally reviewed and interpreted each of the patient?s relevant lab tests, abnormal findings are below: Date 06/25/24 09/23/24 09/26/24 ??WHITE?BLOOD?COUNT?(Thou/mm3) ? 7.1 ? ??RED?BLOOD?COUNT?(Miln/mm3) ? 6.00?H ? ??HEMOGLOBIN?(gm/dl) ? 13.4?L ? ??HEMATOCRIT?(%) ? 41.5 ? ??PLATELET?COUNT?(Thou/mm3) ? 270 ? ??NEUTROPHILS?%,?AUTO?(%) ? 66 ? ??LYMPH?%,?AUTO?(%) ? 25 ? ??NEUTROPHILS,?AUTO?(Thou/mm3) ? 4.7 ? ??GLUCOSE,RANDOM?(mg/dL) 121?H 108?H ? ??BLOOD?UREA?NITROGEN?(mg/dL) 16 23 ? ??CREATININE?(mg/dL) 0.80 0.70 0.7 ??SODIUM?(mmol/L) 139 141 ? ??POTASSIUM?(mmol/L) 5.3?H 4.4 ? ??CHLORIDE?(mmol/L) 98 104 ? ??CrCl?(CandG)?(ml/min) 75.91 81.08 78.81 ??AST/SGOT?(Unit/L) 17 14 ? ??ALT/SGPT?(Unit/L) 10 <?7?L ? ??ALKALINE?PHOSPHATASE?(Unit/L) 123?H 146?H ? ??BILIRUBIN,?TOTAL?(mg/dL) 0.5 0.9 ? ??PROTEIN?TOTAL?(gm/dl) 7.3 6.3 ? ??ALBUMIN,?SERUM?(gm/dl) 4.3 3.9 ? ??GLOBULIN?(gm/dl) 3.0 2.4 ? ??ALBUMIN/GLOBULIN?RATIO 1.4 1.6 ? ??CALCIUM,?SERUM?(mg/dL) 9.9 9.1 ? ??CALCIUM?SERUM?(CORRECTED)?(mg/dL) 9.9 9.2 ? ASSESSMENT/PLAN:?Oanh Michael Assessment/Plan? Metastatic prostate cancer Progressed on zytiga Was changed to xtandi , very noncompliant Partha lizzy, male patient with metastatic prostate cancer, presenting with rising PSA levels and non-compliance with medication. Metastatic Prostate Cancer Assessment: Patient has metastatic prostate cancer with rising PSA levels, currently at 40. The last PET scan in July was stable, but the patient has been non-compliant with Xtandi (enzalutamide) treatment. The patient has also missed his scheduled injection of leuprolide 22.5 mg in August, which was due on September 03. The rising PSA and non-compliance with oral medication indicate disease progression and the need for a change in treatment approach. Plan: - Discontinue Xtandi (enzalutamide) once chemotherapy is scheduled - Initiate docetaxel chemotherapy - Schedule for 6 treatments - Informed consent obtained: Patient counseled on treatment change - Administer overdue leuprolide 22.5 mg injection - Nurses to schedule injection appointment - Monitor PSA levels - Goal: PSA less than 0 after completing 6 chemotherapy treatments - After completion of chemotherapy, consider restarting Xtandi (enzalutamide) - Follow-up appointment in 4 weeks ORDERS: Order # Description [id number] Infusion 2 Hours [id number] Infusion 2 Hours [id number] Infusion 2 Hours [id number] Infusion 2 Hours [id number] Infusion 2 Hours [id number] Infusion 2 Hours [id number] Infusion 2 Hours [id number] Infusion 2 Hours [id number] Infusion 2 Hours RETURN TO CLINIC: BILLING AND COMPLIANCE: I reviewed external records from providers outside my specialty as summarized above. I spent a total of 50 minutes on this patient?s care on the day of their visit excluding time spent related to any billed procedures. This time includes time spent with the patient as well as time spent documenting in the medical record, reviewing patients records and tests, obtaining history, placing orders, communicating with other healthcare professionals, counseling the patient, family or caregiver, and/or care coordination for the diagnoses above. Electronically Signed by: Michael Michael MD T: 12:18 AM CC: Kathrine?Thmoas,? PCP: Michael Michael Referring: Michael Michael This document was completed utilizing speech recognition software. Grammatical errors, random word insertions, pronoun errors, and incomplete sentences are an occasional consequence of this system due to software limitations, ambient noise, and hardware issues. Any formal questions or concerns about the content, text or information contained within the body of this dictation should be directly addressed to the provider for clarification.
== END 2024-10-05 23:59 | disposition home or self-care (01) ==
LOC: SCTC 12:57
PROVIDERS: PCP Nurse Practitioner Family; Referring Provider Internal Medicine Hematology & Oncology; Visit Provider Internal Medicine Hematology & Oncology
DX: Z51.11 Encounter for antineoplastic chemotherapy (principal); C61 Malignant neoplasm of prostate; R97.21 Rising PSA following treatment for malignant neoplasm of prostate; Z91.148 Patient's other noncompliance with medication regimen for other reason
CPT/HCPCS: 36591; 96402; 99213; J9217; G0463

== ENCOUNTER → 2024-10-15 | Outpatient (BNVA) | payer MEDICARE, MEDICAID, SELFPAY | END | disposition home or self-care (01) | PROVIDERS: PCP Urology; Referring Provider Urology; Visit Provider Physician Assistant | DX: C61 Malignant neoplasm of prostate (principal); C79.51 Secondary malignant neoplasm of bone; Z91.148 Patient's other noncompliance with medication regimen for other reason; R97.20 Elevated prostate specific antigen [PSA] | CPT/HCPCS: Q3014 ==

== ENCOUNTER 2024-10-18 08:11 | Outpatient (RCR) | payer MEDICARE, MEDICAID, SELFPAY | END 2024-11-04 23:59 | disposition home or self-care (01) | LOC: SCTC 08:11 | PROVIDERS: Referring Provider Radiology Therapeutic Radiology; Visit Provider Radiology Therapeutic Radiology | DX: C61 Malignant neoplasm of prostate (principal) ==

== ENCOUNTER → 2024-11-29 | Outpatient (CLI) | payer MEDICARE, MEDICAID, SELFPAY ==
[2024-11-29 09:24] LABS: Basophils # (Auto) 0.0 Thou/mm3 (0.0-0.2); Basophils % (Auto) 1 % (0-2.5); Eosinophils # (Auto) 0.1 Thou/mm3 (0.0-0.5); Eosinophils % (Auto) 1 % (0-10); Hematocrit 37.3 % (41.0-53.0); Hemoglobin 11.8 g/dL (13.5-16.0); Immature Granulocytes Auto 0.07 Thou/mm3 (0.00-0.00); Lymphocytes # (Auto) 1.9 Thou/mm3 (1.0-4.8); Lymphocytes % (Auto) 27 % (10-50); Mean Corpuscular HGB Conc 31.6 g/dl (31.0-37.0); Mean Corpuscular Hemoglobin 22.3 pg (25.0-35.0); Mean Corpuscular Volume 71 fL (80-100); Monocytes # (Auto) 0.5 Thou/mm3 (0.0-0.8); Monocytes % (Auto) 7 % (0-12); Neutrophils # (Auto) 4.4 Thou/mm3 (1.8-7.7); Neutrophils % (Auto) 63 % (37-80); Nucleated Red Blood Cell # 0.00 Thou/mm3 (0.00-0.00); Nucleated Red Blood Cell % 0 /100 WBC (0); Platelet Count 253 Thou/mm3 (140-440); RDW Standard Deviation 41.0 fL (35.1-43.9); Red Blood Count 5.28 Miln/mm3 (4.50-5.90); White Blood Count 7.0 Thou/mm3 (3.8-10.6)
[2024-11-29 10:16] LABS: Alanine Aminotransferase < 7 U/L (10-49); Albumin, Serum 3.9 gm/dL (3.4-4.8); Albumin/Globulin Ratio 1.6 (1.2-2.2); Alkaline Phosphatase 259 U/L (46-116); Anion Gap 12 (7-16); Aspartate Amino Transferase 17 U/L (0-34); BUN/Creatinine Ratio 27 Ratio (12-20); Bilirubin,Total 0.5 mg/dL (0.3-1.2); Blood Urea Nitrogen 19 mg/dL (9-23); Calcium 9.6 mg/dL (8.3-10.6); Calcium (Corrected) 9.7 mg/dL (8.5-10.1); Carbon Dioxide 27.9 mMol/L (20.0-31.0); Chloride 105 mMol/L (98-107); Creatinine (Component) 0.7 mg/dL (0.6-1.3); Globulin 2.5 gm/dL (2.3-3.5); Glucose 115 mg/dL (74-106); Osmolality,Calculated 291 (275-295); Potassium 4.6 mMol/L (3.4-5.1); Sodium 145 mMol/L (136-145); Total Protein 6.4 gm/dL (5.7-8.2); eGFR > 60 See Note
== END | disposition home or self-care (01) ==
PROVIDERS: PCP Nurse Practitioner Family; Referring Provider Internal Medicine Hematology & Oncology; Visit Provider Internal Medicine Hematology & Oncology
DX: C61 Malignant neoplasm of prostate (principal); C79.51 Secondary malignant neoplasm of bone
CPT/HCPCS: 36415; 80053; 85025

== ENCOUNTER 2024-12-03 07:55 | Outpatient (RCR) | payer MEDICARE, MEDICAID, SELFPAY ==
--- NOTE | 2024-12-03 11:20 | CTCFLWUP_ITS ---
Patient: LIZZY GARCIA : 1945 Page 2 of 2 FOLLOW UP NOTE DATE OF SERVICE: 12/03/2024 NAME: LIZZY GARCIA ACCOUNT: [id number] : 1945 AGE: 79 INTERVAL HISTORY: Subjective: Chief Complaint Worsening prostate cancer, non-compliance with medication History of Present Illness Mr. Chavis is a male patient with metastatic prostate cancer presenting for follow-up. His prostate-specific antigen (PSA) cancer marker has significantly increased to more than 40. Patient was initially treated with a Casodex and followed by [facility]. Once patient progressed patient was changed to Xtandi. As per patient he has been compliant he also gets Lupron. Patient had continued increase of PSA and that time was offered to start docetaxel. 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 Patient is yet to start docetaxel and has been requesting to continue only oral therapy Medications and Supplements - Xtandi - Patient has been non-compliant - Leuprolide 22.5 mg injection - Given every 3 months - Last dose in June - Missed August dose Objective: Laboratory, Imaging, and Diagnostic Test Results - PSA: 40 (uptrending) - Previous results: - PSA: Unspecified lower value (date not mentioned) - PET scan (July 2024): Stable ONCOLOGY HISTORY:?[facility] Oncology Hx? 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 DATE OF DIAGNOSIS: 06/15/2020 STAGE/TNM: Stage 4 metastatic cancer TREATMENT HISTORY: Care?Plan Start?Date Cycle Day Intent Lupron?22.5?mg?q?3?mon 12/22/2020 1 90 Palliative Xgeva?120?mg?q?3?months 12/22/2020 1 90 Palliative Lupron?7.5?mg 02/02/2021 1 30 Palliative xgeva?monthly 02/02/2021 1 30 Palliative Xgeva?120?mg?q?3?months 05/19/2022 1 90 Palliative Lupron?22.5?mg?q?3?mon 08/24/2026 1 90 Maintenance DOCEtaxel?75?mg/m*2?and?prednisone?5?mg?bid 09/25/2024 1 21 Palliative HISTORY OF PRESENT ILLNESS: PREVIOUS NOTE: Lizzy Garcia is a 79-year-old SPA speaking male, recently diagnosed with metastatic prostate cancer with bone mets. Patient is a father of 18 children out of which 11 are alive. 06/15/2020: Prostate biopsy was performed due to elevated PSA of 59.12. Pathology showed Ton score 9 prostatic adenocarcinoma in all biopsy samples. 07/16/2020: Bone scan? 07/28/2020: CT scan of the chest without contrast? 07/28/2020: X-rays of the thoracic spine, lumbar spine as well as pelvis? 09/01/2020: Patient is started on Casodex 50 mg p.o. daily. 09/15/2020: Patient received his first dose of Lupron 7.5 mg IM. 09/28/2020: Casodex 50 mg p.o. daily prescription was given to Mr. Garcia. However Mr. Garcia did not fill the prescription. 10/15/2020: Patient received Lupron 7.5 mg IM. 12/22/2020: Patient is started on abiraterone. 01/18/2021: Abiraterone decreased to 250 mg, 1 tablet daily after low-fat breakfast PSA trend: 08/10/2020: PSA 44.34. 10/13/2020: PSA 4.01. 12/21/2020: PSA is 19.44. 01/28/2021: PSA 0.75. 05/10/2021: PSA 0.13 09/06/2021: PSA less than 0.10 10/22/2021: Bone scan showed improved appearance. 01/06/2022: PSA less than 0.10 03/14/2022: PSA less than 0.10. 07/08/2022: PSA less than 0.10. 12/06/2022: PSA 0.12 02/13/2023: PSA 0.16. 06/01/2023: PSA 0.45 10/09/2023: PSA 0.77 11/07/2023: CT chest abdomen pelvis with contrast 11/27/2023: Bone scan 12/05/2023: X-ray left hip-no findings diagnostic for osteoblastic metastatic disease involving the hip, consider MRI left hip pre and postcontrast 01/02/2024: MRI abdomen with and without contrast-25 mm right lobe liver cyst, no abdominal lymphadenopathy 01/02/2024: MRI left hip with and without contrast-osseous metastatic disease involving the intertrochanteric and subtrochanteric region left hip as well as anterior right acetabulum 12/04/2023: PSA was 1.21 PSA on 05/16/2024 is 7.23 PSA on 03/21/2024 4.27 OTHER MEDICAL HISTORY/CONDITIONS: FAMILY HISTORY: ?Clone Family Hx? SOCIAL HISTORY: MEDICATIONS: 1. allopurinol - 100 mg 2 tab Daily 2. Citracal + D Slow Release - 600 mg-12.5 mcg (500 unit) 1 tab one tab po twice a day 3. Compazine - 5 mg 5 mg Daily 4. diazePAM - 10 mg 1 tab As directed 5. Flomax - 0.4 mg Daily 6. Jardiance - 10 mg 1 tab Daily 7. Lidocaine Viscous - 2 % 10 mL Daily 8. lisinopril - 20 mg tab 9. Maalox Advanced - 200-200-20 mg/5 mL 20 mL Daily 10. metFORMIN - 500 mg 1 tab Twice a Day 11. Mitigare - 0.6 mg 2 Capsule As directed 12. [place] - 5-325 mg 1 tab As directed 13. nystatin - 100,000 unit/mL 10 mL Daily 14. ondansetron - 8 mg 8 mg Daily 15. Vitamin C - 500 mg 1 tab Daily 16. Xtandi - 40 mg 4 tab Daily?Palabra Meds? Medications Last Reconciled by Carolina Geronimo MA on 12/03/2024 ALLERGIES: PENICILLAMINE REVIEW OF SYSTEMS: A complete 14-point review of systems was performed and is negative except as noted in interval history. PHYSICAL EXAMINATION:?CloneBlock PE? VITAL SIGNS: Temperature?96.2, B/P?138/81, Oxygen?Saturation?98% Weight?142?lbs PAIN: 3 - Between mild and moderate pain GENERAL APPEARANCE: Appears well, in no apparent distress, appropriately interactive. HEENT: Normocephalic, no temporal wasting, normal conjunctiva, no scleral icterus, normal hearing, lips without lesions, neck normal range of motion. CARDIOVASCULAR: Not assessed. PULMONARY: Normal respiratory effort, no respiratory distress or use of accessory muscles, speaking in full sentences, no tachypnea. EXTREMITIES: No pedal edema or cyanosis. SKIN: Normal skin appearance. NEUROLOGIC: Alert and oriented x4. PSHYCHIATRIC: Appropriate affect, mood normal, behavior normal, intact thought and speech. LABORATORY DATA: I have personally reviewed and interpreted each of the patient?s relevant lab tests, abnormal findings are below: Date 09/23/24 09/26/24 11/29/24 ??WHITE?BLOOD?COUNT?(Thou/mm3) 7.1 ? 7.0 ??RED?BLOOD?COUNT?(Miln/mm3) 6.00?H ? 5.28 ??HEMOGLOBIN?(gm/dl) 13.4?L ? 11.8?L ??HEMATOCRIT?(%) 41.5 ? 37.3?L ??PLATELET?COUNT?(Thou/mm3) 270 ? 253 ??NEUTROPHILS?%,?AUTO?(%) 66 ? 63 ??LYMPH?%,?AUTO?(%) 25 ? 27 ??NEUTROPHILS,?AUTO?(Thou/mm3) 4.7 ? 4.4 ??GLUCOSE,RANDOM?(mg/dL) ? ? 115?H ??BLOOD?UREA?NITROGEN?(mg/dL) ? ? 19 ??CREATININE?(mg/dL) ? 0.7 0.70 ??SODIUM?(mmol/L) ? ? 145 ??POTASSIUM?(mmol/L) ? ? 4.6 ??CHLORIDE?(mmol/L) ? ? 105 ??CrCl?(CandG)?(ml/min) ? 78.81 77.34 ??AST/SGOT?(Unit/L) ? ? 17 ??ALT/SGPT?(Unit/L) ? ? <?7?L ??ALKALINE?PHOSPHATASE?(Unit/L) ? ? 259?H ??BILIRUBIN,?TOTAL?(mg/dL) ? ? 0.5 ??PROTEIN?TOTAL?(gm/dl) ? ? 6.4 ??ALBUMIN,?SERUM?(gm/dl) ? ? 3.9 ??GLOBULIN?(gm/dl) ? ? 2.5 ??ALBUMIN/GLOBULIN?RATIO ? ? 1.6 ??CALCIUM,?SERUM?(mg/dL) ? ? 9.6 ??CALCIUM?SERUM?(CORRECTED)?(mg/dL) ? ? 9.7 ASSESSMENT/PLAN:?Oanh Michael Assessment/Plan? Metastatic prostate cancer Progressed on zytiga Was changed to xtandi , very noncompliant lizzy Chavis, male patient with metastatic prostate cancer, presenting with rising PSA levels and non-compliance with medication. Metastatic Prostate Cancer castration resistant Assessment: Patient has metastatic prostate cancer with rising PSA levels, currently at 40. The last PET scan in July was stable, but the patient has been non-compliant with Xtandi (enzalutamide) treatment. I will continue Xtandi for now as patient is very unreliable to come for chemotherapy appointment and he does not want to start docetaxel at this time. Once patient agrees to start docetaxel that time we can either hold Xtandi or continue it with Taxotere. To make patient more compliant will hold Xtandi once docetaxel chemotherapy is started - Initiate docetaxel chemotherapy - Schedule for 6 treatments - Informed consent obtained: Patient counseled on treatment change - Administer overdue leuprolide 22.5 mg injection - Nurses to schedule injection appointment - Monitor PSA levels - Goal: PSA less than 0 after completing 6 chemotherapy treatments - After completion of chemotherapy, consider restarting Xtandi (enzalutamide) - Follow-up appointment in 4 weeks ORDERS: Order # Description [id number] Comprehensive Metabolic Panel - 12 + CBC with Auto Diff + PSA [id number] Infusion 2 Hours [id number] Infusion 2 Hours [id number] Infusion 2 Hours [id number] Infusion 2 Hours [id number] Infusion 2 Hours [id number] Infusion 2 Hours RETURN TO CLINIC: I reviewed the diagnosis, prognosis, and recommended treatment/procedure options with the patient (and/or their legal help desk representative), including the potential benefits, risks, side effects and alternative therapies. We also discussed the option of no treatment and the possibility of clinical trial participation, if applicable. All questions were addressed, and they demonstrated understanding. They provided informed consent to proceed with the proposed plan of care. BILLING AND COMPLIANCE: I reviewed external records from providers outside my specialty as summarized above. I spent a total of 50 minutes on this patient?s care on the day of their visit excluding time spent related to any billed procedures. This time includes time spent with the patient as well as time spent documenting in the medical record, reviewing patients records and tests, obtaining history, placing orders, communicating with other healthcare professionals, counseling the patient, family or caregiver, and/or care coordination for the diagnoses above. Electronically Signed by: Michael Michael MD T: 11:18 AM CC: Rosaura? PCP: Nando([facility] Referring: Nando([facility] This document was completed utilizing speech recognition software. Grammatical errors, random word insertions, pronoun errors, and incomplete sentences are an occasional consequence of this system due to software limitations, ambient noise, and hardware issues. Any formal questions or concerns about the content, text or information contained within the body of this dictation should be directly addressed to the provider for clarification.
== END 2024-12-05 23:59 | disposition home or self-care (01) ==
LOC: SCTC 07:55
PROVIDERS: PCP Nurse Practitioner Family; Referring Provider Nurse Practitioner Family; Visit Provider Internal Medicine Hematology & Oncology
DX: C61 Malignant neoplasm of prostate (principal); C79.51 Secondary malignant neoplasm of bone; R97.21 Rising PSA following treatment for malignant neoplasm of prostate; Z91.148 Patient's other noncompliance with medication regimen for other reason
CPT/HCPCS: 99212; 99424; 99425; G0463

== ENCOUNTER 2025-03-13 14:55 | Outpatient (RCR) | payer MEDICARE, MEDICAID, SELFPAY ==
--- NOTE | 2025-03-13 15:41 | CTCFLWUP_ITS ---
Patient: LIZZY GARCIA : 1945 Page 2 of 2 FOLLOW UP NOTE DATE OF SERVICE: 03/13/2025 NAME: LIZZY GARCIA ACCOUNT: [id number] : 1945 AGE: 79 INTERVAL HISTORY: Subjective: Chief Complaint Worsening prostate cancer, non-compliance with medication History of Present Illness Mr. Chavis is a male patient with metastatic prostate cancer presenting for follow-up. His prostate-specific antigen (PSA) cancer marker has significantly increased to 348.30 on 01/12/2025. Patient was initially treated with a Casodex and followed by [facility]. Once patient progressed patient was changed to Xtandi. As per patient he has been compliant he also gets Lupron. Patient had continued increase of PSA and that time was offered to start docetaxel. 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 Patient was recently admitted at [facility] and had surgery on 01/01/2025 . Patient is still in rehabilitation. I discussed starting him on docetexol once he is out of rehabilitation . also will refer for possible radium therapy . Medications and Supplements - Xtandi - Patient has been non-compliant - Leuprolide 22.5 mg injection - Given every 3 months - Last dose in June - Missed August dose Objective: Laboratory, Imaging, and Diagnostic Test Results - PSA: 40 (uptrending) - Previous results: - PSA: Unspecified lower value (date not mentioned) - PET scan (July 2024): Stable ONCOLOGY HISTORY:?[facility] Oncology Hx? 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 DATE OF DIAGNOSIS: 06/15/2020 STAGE/TNM: Stage 4 metastatic cancer TREATMENT HISTORY: Care?Plan Start?Date Cycle Day Intent Lupron?22.5?mg?q?3?mon 12/22/2020 1 90 Palliative Xgeva?120?mg?q?3?months 12/22/2020 1 90 Palliative Lupron?7.5?mg 02/02/2021 1 30 Palliative xgeva?monthly 02/02/2021 1 30 Palliative Xgeva?120?mg?q?3?months 05/19/2022 1 90 Palliative Lupron?22.5?mg?q?3?mon 08/24/2026 1 90 Maintenance DOCEtaxel?75?mg/m*2?and?prednisone?5?mg?bid 09/25/2024 1 21 Palliative HISTORY OF PRESENT ILLNESS: PREVIOUS NOTE: Lizzy Garcia is a 79-year-old SPA speaking male, recently diagnosed with metastatic prostate cancer with bone mets. Patient is a father of 18 children out of which 11 are alive. 06/15/2020: Prostate biopsy was performed due to elevated PSA of 59.12. Pathology showed Ton score 9 prostatic adenocarcinoma in all biopsy samples. 07/16/2020: Bone scan? 07/28/2020: CT scan of the chest without contrast? 07/28/2020: X-rays of the thoracic spine, lumbar spine as well as pelvis? 09/01/2020: Patient is started on Casodex 50 mg p.o. daily. 09/15/2020: Patient received his first dose of Lupron 7.5 mg IM. 09/28/2020: Casodex 50 mg p.o. daily prescription was given to Mr. Garcia. However Mr. Garcia did not fill the prescription. 10/15/2020: Patient received Lupron 7.5 mg IM. 12/22/2020: Patient is started on abiraterone. 01/18/2021: Abiraterone decreased to 250 mg, 1 tablet daily after low-fat breakfast PSA trend: 08/10/2020: PSA 44.34. 10/13/2020: PSA 4.01. 12/21/2020: PSA is 19.44. 01/28/2021: PSA 0.75. 05/10/2021: PSA 0.13 09/06/2021: PSA less than 0.10 10/22/2021: Bone scan showed improved appearance. 01/06/2022: PSA less than 0.10 03/14/2022: PSA less than 0.10. 07/08/2022: PSA less than 0.10. 12/06/2022: PSA 0.12 02/13/2023: PSA 0.16. 06/01/2023: PSA 0.45 10/09/2023: PSA 0.77 11/07/2023: CT chest abdomen pelvis with contrast 11/27/2023: Bone scan 12/05/2023: X-ray left hip-no findings diagnostic for osteoblastic metastatic disease involving the hip, consider MRI left hip pre and postcontrast 01/02/2024: MRI abdomen with and without contrast-25 mm right lobe liver cyst, no abdominal lymphadenopathy 01/02/2024: MRI left hip with and without contrast-osseous metastatic disease involving the intertrochanteric and subtrochanteric region left hip as well as anterior right acetabulum 12/04/2023: PSA was 1.21 PSA on 05/16/2024 is 7.23 PSA on 03/21/2024 4.27 OTHER MEDICAL HISTORY/CONDITIONS: FAMILY HISTORY: ?Clone Family Hx? SOCIAL HISTORY: MEDICATIONS: 1. allopurinol - 100 mg 2 tab Daily 2. Citracal + D Slow Release - 600 mg-12.5 mcg (500 unit) 1 tab one tab po twice a day 3. Compazine - 5 mg 5 mg Daily 4. dexamethasone - 4 mg 2 tab 2 tabs po twice a day starting one day before chem 5. diazePAM - 10 mg 1 tab As directed 6. Flomax - 0.4 mg Daily 7. Jardiance - 10 mg 1 tab Daily 8. Lidocaine Viscous - 2 % 10 mL Daily 9. lisinopril - 20 mg tab 10. Maalox Advanced - 200-200-20 mg/5 mL 20 mL Daily 11. metFORMIN - 500 mg 1 tab Twice a Day 12. Mitigare - 0.6 mg 2 Capsule As directed 13. [place] - 5-325 mg 1 tab As directed 14. nystatin - 100,000 unit/mL 10 mL Daily 15. ondansetron - 8 mg 8 mg Daily 16. Vitamin C - 500 mg 1 tab Daily 17. Xtandi - 40 mg 4 tab Daily?[facility]ra Meds? Medications Last Reconciled by Carolina Geronimo MA on 12/03/2024 ALLERGIES: PENICILLAMINE REVIEW OF SYSTEMS: A complete 14-point review of systems was performed and is negative except as noted in interval history. PHYSICAL EXAMINATION:?CloneBlock PE? VITAL SIGNS: PAIN: 1 - Between no and mild pain ECOG Performance Status: 3 - Symptomatic; limited self-care; spends >50% of time in bed, not bedridden GENERAL APPEARANCE: Appears well, in no apparent distress, appropriately interactive. HEENT: Normocephalic, no temporal wasting, normal conjunctiva, no scleral icterus, normal hearing, lips without lesions, neck normal range of motion. CARDIOVASCULAR: Not assessed. PULMONARY: Normal respiratory effort, no respiratory distress or use of accessory muscles, speaking in full sentences, no tachypnea. EXTREMITIES: No pedal edema or cyanosis. SKIN: Normal skin appearance. NEUROLOGIC: Alert and oriented x4. PSHYCHIATRIC: Appropriate affect, mood normal, behavior normal, intact thought and speech. LABORATORY DATA: I have personally reviewed and interpreted each of the patient?s relevant lab tests, abnormal findings are below: Date 09/23/24 09/26/24 11/29/24 ??WHITE?BLOOD?COUNT?(Thou/mm3) 7.1 ? 7.0 ??RED?BLOOD?COUNT?(Miln/mm3) 6.00?H ? 5.28 ??HEMOGLOBIN?(gm/dl) 13.4?L ? 11.8?L ??HEMATOCRIT?(%) 41.5 ? 37.3?L ??PLATELET?COUNT?(Thou/mm3) 270 ? 253 ??NEUTROPHILS?%,?AUTO?(%) 66 ? 63 ??LYMPH?%,?AUTO?(%) 25 ? 27 ??NEUTROPHILS,?AUTO?(Thou/mm3) 4.7 ? 4.4 ??GLUCOSE,RANDOM?(mg/dL) ? ? 115?H ??BLOOD?UREA?NITROGEN?(mg/dL) ? ? 19 ??CREATININE?(mg/dL) ? 0.7 0.70 ??SODIUM?(mmol/L) ? ? 145 ??POTASSIUM?(mmol/L) ? ? 4.6 ??CHLORIDE?(mmol/L) ? ? 105 ??CrCl?(CandG)?(ml/min) ? 78.81 77.34 ??AST/SGOT?(Unit/L) ? ? 17 ??ALT/SGPT?(Unit/L) ? ? <?7?L ??ALKALINE?PHOSPHATASE?(Unit/L) ? ? 259?H ??BILIRUBIN,?TOTAL?(mg/dL) ? ? 0.5 ??PROTEIN?TOTAL?(gm/dl) ? ? 6.4 ??ALBUMIN,?SERUM?(gm/dl) ? ? 3.9 ??GLOBULIN?(gm/dl) ? ? 2.5 ??ALBUMIN/GLOBULIN?RATIO ? ? 1.6 ??CALCIUM,?SERUM?(mg/dL) ? ? 9.6 ??CALCIUM?SERUM?(CORRECTED)?(mg/dL) ? ? 9.7 ASSESSMENT/PLAN:?Oanh Michael Assessment/Plan? Metastatic prostate cancer Progressed on zytiga Was changed to xtandi , very noncompliant lizzy Chavis, male patient with metastatic prostate cancer, presenting with rising PSA levels and non-compliance with medication. Metastatic Prostate Cancer castration resistant Assessment: Patient has metastatic prostate cancer with rising PSA levels, currently at 40. The last PET scan in July was stable, but the patient has been non-compliant with Xtandi (enzalutamide) treatment. I will continue Xtandi for now as patient is very unreliable to come for chemotherapy appointment and he does not want to start docetaxel at this time. Once patient agrees to start docetaxel that time we can either hold Xtandi or continue it with Taxotere. Will start docetexol once patient have completed rehabilitation and healed his wound - Schedule for 6 treatments - Informed consent obtained: Patient counseled on treatment change - Administer overdue leuprolide 22.5 mg injection - Monitor PSA levels Cont xtandi Cont calcium and vit D3 Refer to [facility] for radium therapy ORDERS: Order # Description [id number] Comprehensive Metabolic Panel - 12 + CBC with Auto Diff + PSA [id number] PET/CT of Skull to mid-thigh for Restaging [id number] Infusion 2 Hours RETURN TO CLINIC: I reviewed the diagnosis, prognosis, and recommended treatment/procedure options with the patient (and/or their legal marketing development representative), including the potential benefits, risks, side effects and alternative therapies. We also discussed the option of no treatment and the possibility of clinical trial participation, if applicable. All questions were addressed, and they demonstrated understanding. They provided informed consent to proceed with the proposed plan of care. BILLING AND COMPLIANCE: I reviewed external records from providers outside my specialty as summarized above. I spent a total of 50 minutes on this patient?s care on the day of their visit excluding time spent related to any billed procedures. This time includes time spent with the patient as well as time spent documenting in the medical record, reviewing patients records and tests, obtaining history, placing orders, communicating with other healthcare professionals, counseling the patient, family or caregiver, and/or care coordination for the diagnoses above. Electronically Signed by: Michael Michael MD T: 3:39 PM CC: Rosaura? PCP: Nando([facility] Referring: Nando([facility] This document was completed utilizing speech recognition software. Grammatical errors, random word insertions, pronoun errors, and incomplete sentences are an occasional consequence of this system due to software limitations, ambient noise, and hardware issues. Any formal questions or concerns about the content, text or information contained within the body of this dictation should be directly addressed to the provider for clarification.
== END 2025-04-06 23:59 | disposition home or self-care (01) ==
LOC: SCTC 14:55
PROVIDERS: PCP Nurse Practitioner Family; Referring Provider Nurse Practitioner Family; Visit Provider Internal Medicine Hematology & Oncology
DX: C61 Malignant neoplasm of prostate (principal); Z19.2 Hormone resistant malignancy status; Z91.148 Patient's other noncompliance with medication regimen for other reason
CPT/HCPCS: 36415; 84153; 99212; G0463

== ENCOUNTER → 2025-04-01 | Outpatient (CLI) | payer MEDICARE, MEDICAID, SELFPAY ==
--- NOTE | 2025-04-01 13:15 | XR_ITS ---
EXAMINATION: PET/CT FUSION SKULL TO THIGH EXAM DATE AND TIME: April 01, 2025, 1352 hours, comparison PET/CT scan July 11, 2024, PET/CT scan March 21, 2024 INDICATIONS: Diagnosis prostate cancer restaging post treatment CTDI:vol (mGy) 5.47 DLP: (mGycm) 499.92 PROCEDURE: 15.1 mCi FDG was administered intravenously To allow for distribution and uptake of radiotracer, the patient was allowed to rest quietly in a shielded room. Imaging was performed on an integrated 16-slice PET/CT scanner, with scanning from the skull base to the mid thigh. Serum blood glucose at the time of the injection was measured 97 mg/dL. CT scanning was performed without oral or intravenous contrast material. FINDINGS: Head and Neck: There is no dagoberto hypermetabolism in the neck. The visualized portions of the brain are normal in appearance on CT. Chest: Atelectasis in the right lower lobe Moderate to large right pleural effusion Mild left pleural effusion Abdomen and Pelvis: There is no dagoberto hypermetabolism in retroperitoneal or pelvic chains. The spleen is normal in size and FDG avidity. Musculoskeletal: No significant change in non-hypermetabolic osteoblastic metastatic disease IMPRESSION: No significant change in non-hypermetabolic osteoblastic metastatic disease Atelectasis in the right lower lobe Moderate to large right pleural effusion, amenable to ultrasound-guided thoracentesis
== END | disposition home or self-care (01) ==
PROVIDERS: PCP Internal Medicine Hematology & Oncology; Referring Provider Internal Medicine Hematology & Oncology; Visit Provider Internal Medicine Hematology & Oncology
DX: J98.11 Atelectasis (principal); C61 Malignant neoplasm of prostate; C79.51 Secondary malignant neoplasm of bone
CPT/HCPCS: 78815; A9552

== ENCOUNTER → 2025-04-09 | Outpatient (CLI) | payer MEDICARE, MEDICAID, SELFPAY ==
[2025-04-09 11:44] LABS: Basophils # (Auto) 0.1 Thou/mm3 (0.0-0.2); Basophils % (Auto) 1 % (0-2.5); Eosinophils # (Auto) 0.1 Thou/mm3 (0.0-0.5); Eosinophils % (Auto) 2 % (0-10); Hematocrit 28.0 % (41.0-53.0); Immature Granulocytes Auto 0.29 Thou/mm3 (0.00-0.00); Lymphocytes # (Auto) 2.1 Thou/mm3 (1.0-4.8); Lymphocytes % (Auto) 33 % (10-50); Mean Corpuscular HGB Conc 31.1 g/dl (31.0-37.0); Mean Corpuscular Hemoglobin 23.3 pg (25.0-35.0); Mean Corpuscular Volume 75 fL (80-100); Monocytes # (Auto) 0.4 Thou/mm3 (0.0-0.8); Monocytes % (Auto) 6 % (0-12); Neutrophils # (Auto) 3.3 Thou/mm3 (1.8-7.7); Neutrophils % (Auto) 53 % (37-80); Nucleated Red Blood Cell # 0.12 Thou/mm3 (0.00-0.00); Nucleated Red Blood Cell % 2 /100 WBC (0); Platelet Count 228 Thou/mm3 (140-440); RDW Standard Deviation 48.5 fL (35.1-43.9); Red Blood Count 3.74 Miln/mm3 (4.50-5.90); White Blood Count 6.3 Thou/mm3 (3.8-10.6)
[2025-04-09 11:59] LABS: Hemoglobin 8.7 g/dL (13.5-16.0)
[2025-04-09 12:00] LABS: Alanine Aminotransferase < 7 U/L (10-49); Albumin, Serum 4.5 gm/dL (3.4-4.8); Albumin/Globulin Ratio 1.6 (1.2-2.2); Alkaline Phosphatase 205 U/L (46-116); Anion Gap 11 (7-16); Aspartate Amino Transferase 19 U/L (0-34); BUN/Creatinine Ratio 18 Ratio (12-20); Bilirubin,Total 0.6 mg/dL (0.3-1.2); Blood Urea Nitrogen 18 mg/dL (9-23); Calcium 9.4 mg/dL (8.3-10.6); Calcium (Corrected) 9.4 mg/dL (8.5-10.1); Carbon Dioxide 27.6 mMol/L (20.0-31.0); Chloride 106 mMol/L (98-107); Creatinine (Component) 1.0 mg/dL (0.6-1.3); Globulin 2.8 gm/dL (2.3-3.5); Glucose 136 mg/dL (74-106); Osmolality,Calculated 292 (275-295); Potassium 4.2 mMol/L (3.4-5.1); Sodium 145 mMol/L (136-145); Total Protein 7.3 gm/dL (5.7-8.2); eGFR > 60 See Note
== END | disposition home or self-care (01) ==
LOC: SCTO 10:39
PROVIDERS: PCP Nurse Practitioner Family; Referring Provider Internal Medicine Hematology & Oncology; Visit Provider Internal Medicine Hematology & Oncology
DX: C61 Malignant neoplasm of prostate (principal); C79.51 Secondary malignant neoplasm of bone
CPT/HCPCS: 36415; 80053; 84153; 85025

== ENCOUNTER 2025-04-17 10:00 | Outpatient (RCR) | payer MEDICARE, MEDICAID, SELFPAY ==
--- NOTE | 2025-04-10 16:33 | CTCFLWUP_ITS ---
Patient: LIZZY GARCIA : 1945 Page 6 of 8 FOLLOW UP NOTE DATE OF SERVICE: 04/10/2025 NAME: LIZZY GARCIA ACCOUNT: [id number] : 1945 AGE: 79 INTERVAL HISTORY: Subjective: Chief Complaint Worsening prostate cancer, non-compliance with medication History of Present Illness Mr. Chavis is a male patient with metastatic prostate cancer presenting for follow-up. His prostate-specific antigen (PSA) cancer marker has significantly increased to 348.30 on 01/12/2025. Patient was initially treated with a Casodex and followed by [facility]. Once patient progressed patient was changed to Xtandi. As per patient he has been compliant he also gets Lupron. Patient had continued increase of PSA and that time was offered to start docetaxel. 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 Patient was recently admitted at [facility] and had surgery on 01/01/2025 . Patient is still in rehabilitation. I discussed starting him on docetexol once he is out of rehabilitation . also will refer for possible radium therapy . 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 DATE OF DIAGNOSIS: 06/15/2020 STAGE/TNM: Stage 4 metastatic cancer TREATMENT HISTORY: Care?Plan Start?Date Cycle Day Intent Lupron?22.5?mg?q?3?mon 12/22/2020 1 90 Palliative Xgeva?120?mg?q?3?months 12/22/2020 1 90 Palliative Lupron?7.5?mg 02/02/2021 1 30 Palliative xgeva?monthly 02/02/2021 1 30 Palliative Xgeva?120?mg?q?3?months 05/19/2022 1 90 Palliative Lupron?22.5?mg?q?3?mon 08/24/2026 1 90 Maintenance DOCEtaxel?75?mg/m*2?and?prednisone?5?mg?bid 09/25/2024 1 21 Palliative HISTORY OF PRESENT ILLNESS: PREVIOUS NOTE: Lizzy Garcia is a 79-year-old SPA speaking male, recently diagnosed with metastatic prostate cancer with bone mets. Patient is a father of 18 children out of which 11 are alive. 06/15/2020: Prostate biopsy was performed due to elevated PSA of 59.12. Pathology showed [place] score 9 prostatic adenocarcinoma in all biopsy samples. 07/16/2020: Bone scan? 07/28/2020: CT scan of the chest without contrast? 07/28/2020: X-rays of the thoracic spine, lumbar spine as well as pelvis? 09/01/2020: Patient is started on Casodex 50 mg p.o. daily. 09/15/2020: Patient received his first dose of Lupron 7.5 mg IM. 09/28/2020: Casodex 50 mg p.o. daily prescription was given to Mr. Garcia. However Mr. Garcia did not fill the prescription. 10/15/2020: Patient received Lupron 7.5 mg IM. 12/22/2020: Patient is started on abiraterone. 01/18/2021: Abiraterone decreased to 250 mg, 1 tablet daily after low-fat breakfast PSA trend: 08/10/2020: PSA 44.34. 10/13/2020: PSA 4.01. 12/21/2020: PSA is 19.44. 01/28/2021: PSA 0.75. 05/10/2021: PSA 0.13 09/06/2021: PSA less than 0.10 10/22/2021: Bone scan showed improved appearance. 01/06/2022: PSA less than 0.10 03/14/2022: PSA less than 0.10. 07/08/2022: PSA less than 0.10. 12/06/2022: PSA 0.12 02/13/2023: PSA 0.16. 06/01/2023: PSA 0.45 10/09/2023: PSA 0.77 11/07/2023: CT chest abdomen pelvis with contrast 11/27/2023: Bone scan 12/05/2023: X-ray left hip-no findings diagnostic for osteoblastic metastatic disease involving the hip, consider MRI left hip pre and postcontrast 01/02/2024: MRI abdomen with and without contrast-25 mm right lobe liver cyst, no abdominal lymphadenopathy 01/02/2024: MRI left hip with and without contrast-osseous metastatic disease involving the intertrochanteric and subtrochanteric region left hip as well as anterior right acetabulum 12/04/2023: PSA was 1.21 PSA on 05/16/2024 is 7.23 PSA on 03/21/2024 4.27 OTHER MEDICAL HISTORY/CONDITIONS: FAMILY HISTORY: SOCIAL HISTORY: MEDICATIONS: 1. carvedilol - 3.125 mg 1 tab Twice a Day 2. dexamethasone - 4 mg 2 tab 2 tabs po twice a day starting one day before chem 3. furosemide - 40 mg 1 tab Twice a Day 4. isosorbide dinitrate - 30 mg 1 tab Daily 5. Jardiance - 10 mg 1 tab Daily 6. ondansetron - 8 mg 8 mg Daily 7. pantoprazole - 40 mg 1 tab Twice a Day 8. Xtandi - 40 mg 4 tab Daily 9. ZyrTEC - 10 mg 1 tab Daily Medications Last Reconciled by Aissatou Gayle MA on 04/10/2025 ALLERGIES: PENICILLAMINE REVIEW OF SYSTEMS: A complete 14-point review of systems was performed and is negative except as noted in interval history. PHYSICAL EXAMINATION: VITAL SIGNS: Temperature?98, B/P?123/74, Oxygen?Saturation?97% PAIN: 5 - Between moderate and severe pain GENERAL APPEARANCE: Appears well, in no apparent distress, appropriately interactive. HEENT: Normocephalic, no temporal wasting, normal conjunctiva, no scleral icterus, normal hearing, lips without lesions, neck normal range of motion. CARDIOVASCULAR: Not assessed. PULMONARY: Normal respiratory effort, no respiratory distress or use of accessory muscles, speaking in full sentences, no tachypnea. EXTREMITIES: No pedal edema or cyanosis. SKIN: Normal skin appearance. NEUROLOGIC: Alert and oriented x4. PSHYCHIATRIC: Appropriate affect, mood normal, behavior normal, intact thought and speech. LABORATORY DATA: I have personally reviewed and interpreted each of the patient?s relevant lab tests, abnormal findings are below: Date 11/29/24 04/09/25 ??WHITE?BLOOD?COUNT?(Thou/mm3) 7.0 6.3 ??RED?BLOOD?COUNT?(Miln/mm3) 5.28 3.74?L ??HEMOGLOBIN?(gm/dl) 11.8?L 8.7?L ??HEMATOCRIT?(%) 37.3?L 28.0?L ??PLATELET?COUNT?(Thou/mm3) 253 228 ??NEUTROPHILS?%,?AUTO?(%) 63 53 ??LYMPH?%,?AUTO?(%) 27 33 ??NEUTROPHILS,?AUTO?(Thou/mm3) 4.4 3.3 ??GLUCOSE,RANDOM?(mg/dL) 115?H 136?H ??BLOOD?UREA?NITROGEN?(mg/dL) 19 18 ??CREATININE?(mg/dL) 0.70 1.00 ??SODIUM?(mmol/L) 145 145 ??POTASSIUM?(mmol/L) 4.6 4.2 ??CHLORIDE?(mmol/L) 105 106 ??CrCl?(CandG)?(ml/min) 77.34 55.46 ??AST/SGOT?(Unit/L) 17 19 ??ALT/SGPT?(Unit/L) <?7?L <?7?L ??ALKALINE?PHOSPHATASE?(Unit/L) 259?H 205?H ??BILIRUBIN,?TOTAL?(mg/dL) 0.5 0.6 ??PROTEIN?TOTAL?(gm/dl) 6.4 7.3 ??ALBUMIN,?SERUM?(gm/dl) 3.9 4.5 ??GLOBULIN?(gm/dl) 2.5 2.8 ??ALBUMIN/GLOBULIN?RATIO 1.6 1.6 ??CALCIUM,?SERUM?(mg/dL) 9.6 9.4 ??CALCIUM?SERUM?(CORRECTED)?(mg/dL) 9.7 9.4 ASSESSMENT/PLAN: Metastatic prostate cancer castration resistant Progressed on zytiga Was changed to xtandi , very noncompliant Patient has metastatic prostate cancer with rising PSA levels, currently more than 400 Patient was traveling in [place] and has not come to his appointment to get the injection Patient says that he was told that [facility] when he was in the senior living that he does not need further injections that is why he did not keep up his appointments He has not received Lupron since September 2024 Patient has been very noncompliant even on review of records patient did not receive his injections regularly since 2020 Patient's daughter promised that she now onward will bring the patient every 3 months for his Lupron injection Explained to Mr. Garcia and daughter that if patient does take Xtandi medicine do not work without Lupron Advised to take calcium and vitamin D3 Will resume Xgeva only once patient is cleared by dentist RTC in 2 months RETURN TO CLINIC: I reviewed the diagnosis, prognosis, and recommended treatment/procedure options with the patient (and/or their legal advertising representative), including the potential benefits, risks, side effects and alternative therapies. We also discussed the option of no treatment and the possibility of clinical trial participation, if applicable. All questions were addressed, and they demonstrated understanding. They provided informed consent to proceed with the proposed plan of care. BILLING AND COMPLIANCE: I reviewed external records from providers outside my specialty as summarized above. I spent a total of 50 minutes on this patient?s care on the day of their visit excluding time spent related to any billed procedures. This time includes time spent with the patient as well as time spent documenting in the medical record, reviewing patients records and tests, obtaining history, placing orders, communicating with other healthcare professionals, counseling the patient, family or caregiver, and/or care coordination for the diagnoses above. Electronically Signed by: Michael Michael MD T: 4:31 PM CC: Rosaura? PCP: Nando([facility] Referring: Nando([facility])[place] This document was completed utilizing speech recognition software. Grammatical errors, random word insertions, pronoun errors, and incomplete sentences are an occasional consequence of this system due to software limitations, ambient noise, and hardware issues. Any formal questions or concerns about the content, text or information contained within the body of this dictation should be directly addressed to the provider for clarification.
== END 2025-05-07 23:59 | disposition home or self-care (01) ==
LOC: SCTC 10:00
PROVIDERS: PCP Nurse Practitioner Family; Referring Provider Nurse Practitioner Family; Visit Provider Internal Medicine Hematology & Oncology
DX: Z51.11 Encounter for antineoplastic chemotherapy (principal); C61 Malignant neoplasm of prostate; Z91.148 Patient's other noncompliance with medication regimen for other reason; C79.51 Secondary malignant neoplasm of bone
CPT/HCPCS: 96402; 99212; J9217; G0463